=== PATIENT | female | born 1975 | race Caucasian/White ===

== ENCOUNTER → 2019-08-21 12:18 | Outpatient (CLI) | payer OTHER, SELFPAY ==
[2019-08-22 12:56] LABS: Strep Grp B PCR NEG for Grp B Strep
== END ==
PROVIDERS: PCP Family Medicine; Visit Provider Specialist
DX: Z34.83 Encounter for supervision of other normal pregnancy, third trimester (principal)
CPT/HCPCS: 87653

== ENCOUNTER 2019-09-25 10:09 | Outpatient (CLI) | payer OTHER, SELFPAY ==
--- NOTE | 2019-09-25 10:42 | PM.OBTRLD ---
Visit Information Visit Information Date of evaluation: 09/25/19 Primary OB Provider: Nury Duran Reason for Evaluation: Yes non-stress test non-stress test reason: other (Postdates) [facility] Medical History (Updated 09/25/19 @ 10:43 by Nury Duran MD) Abnormal Pap smear of cervix (Inactive ~2001) Allergies (Chronic ~1991) Chicken pox (Resolved ~1988) GERD (gastroesophageal reflux disease) (Chronic ~1987) Human papilloma virus (Inactive ~2001) Hypothyroidism (Chronic ~2009) Vitiligo (Chronic ~2009) Surgical History (Updated 05/01/19 @ 21:05 by Merari Veras) Anesthesia (Resolved) H/O LEEP (Resolved ~2001) Family History (Updated 05/01/19 @ 21:07 by Merari Veras) Father Prostate cancer Stroke Sister Mental health problem Social History Smoking Status: Never smoker Evaluation Evaluation Baseline heart rate: 130 Variability: Moderate (11-25) monitor accelerations: Present monitor decelerations: Absent Category of Tracing: I Diagnosis, Plan/Disposition Final Diagnosis (1) Post-dates : Current Visit: Yes Status: Acute Plan/Disposition Plan: Reactive nonstress test. Follow-up in 4 days. OB Disposition: home
== END 2019-09-25 11:02 | disposition home or self-care (01) ==
LOC: OB 14:41
PROVIDERS: PCP Family Medicine; Visit Provider Specialist
DX: O48.0 Post-term pregnancy (principal); O09.523 Supervision of elderly multigravida, third trimester; Z3A.40 40 weeks gestation of pregnancy
CPT/HCPCS: 59025; G0378; G0379

== ENCOUNTER 2019-09-29 10:05 | Outpatient (CLI) | payer OTHER, SELFPAY ==
--- NOTE | 2019-09-29 10:39 | PM.OBTRLD ---
Visit Information Visit Information Date of evaluation: 09/29/19 Primary OB Provider: Nury Duran Reason for Evaluation: Yes non-stress test non-stress test reason: other (41 weeks) [facility] Medical History (Updated 09/25/19 @ 10:43 by Nury Duran MD) Abnormal Pap smear of cervix (Inactive ~2001) Allergies (Chronic ~1991) Chicken pox (Resolved ~1988) GERD (gastroesophageal reflux disease) (Chronic ~1987) Human papilloma virus (Inactive ~2001) Hypothyroidism (Chronic ~2009) Vitiligo (Chronic ~2009) Surgical History (Updated 05/01/19 @ 21:05 by Merari Veras) Anesthesia (Resolved) H/O LEEP (Resolved ~2001) Family History (Updated 05/01/19 @ 21:07 by Merari Veras) Father Prostate cancer Stroke Sister Mental health problem Social History Smoking Status: Never smoker Evaluation Evaluation Baseline heart rate: 130 Variability: Moderate (11-25) monitor accelerations: Present monitor decelerations: Absent Contraction Frequency (minutes): 10 Uterine Contraction Intensity: Mild Category of Tracing: I Cervical dilation (cm): 3 Cervical effacement (%): 80 station: -3 Diagnosis, Plan/Disposition Final Diagnosis (1) Post-dates : Current Visit: No Status: Acute Plan/Disposition Plan: Reactive nonstress test. Follow-up in 3 days OB Disposition: home
== END 2019-09-29 10:45 | disposition home or self-care (01) ==
LOC: LABOR 10:24 → OB 10-02 15:15
PROVIDERS: PCP Family Medicine; Visit Provider Specialist
DX: O48.0 Post-term pregnancy (principal); O09.523 Supervision of elderly multigravida, third trimester; Z3A.40 40 weeks gestation of pregnancy
CPT/HCPCS: 59025; G0378; G0379

== ENCOUNTER 2019-10-02 03:27 | Inpatient (IN) | payer OTHER, SELFPAY ==
[2019-10-02 04:36] VITALS: BP 153/85
--- NOTE | 2019-10-02 04:48 | P.HPOB_ITS ---
OB HPI Date/Time Date of admission: 10/02/19 Date Patient Seen: 10/02/19 Time Patient Seen: 04:48 History of Present Condition Chief complaint: evaluation of labor : 4 Para: 1 Estimated Date of Delivery: 09/23/19 Estimated Gestational Age (weeks): 41 Narrative: Zoë Rose is a 43 year old female admitted in active labor History of Present care: good care, initiated at week # (7), number of visits (15) and pounds weight gain (28) Dating criteria: LMP confirmed by 1st trimester US Ultrasounds: normal mid trimester US Obstetrical complications: none Medical complications: none Preadmission Labs Blood type: A (+) positive -: Antibody screen: negative, GBS status: negative, HBsAG: negative, HIV: negative and RPR/VDLR: negative -: Chlamydia screen: not detected and Gonorrhea screen: not detected -: Rubella: immune HCAB: negative PAP: Normal Cell-free DNA: Normal 1 hr GTT: 143 3 hr GTT: 1 hr (189), 2 hr (142) and 3 hr (120) Fasting blood glucose: 84 Prior (ies) History: 01/20/2016 41 weeks 6 lb 9 oz male vaginal delivery Evaluation Evaluation Baseline heart rate: 120 Variability: Moderate (11-25) monitor accelerations: Present monitor decelerations: Early Contraction Frequency (minutes): 2 Uterine Contraction Intensity: Strong/Firm Category of Tracing: I Cervical dilation (cm): 9 Cervical effacement (%): 100 station: -2 [facility] Medical History (Updated 09/25/19 @ 10:43 by Nury Duran MD) Abnormal Pap smear of cervix (Inactive ~2001) Allergies (Chronic ~1991) Chicken pox (Resolved ~1988) GERD (gastroesophageal reflux disease) (Chronic ~1987) Human papilloma virus (Inactive ~2001) Hypothyroidism (Chronic ~2009) Vitiligo (Chronic ~2009) Surgical History (Updated 05/01/19 @ 21:05 by Merari Veras) Anesthesia (Resolved) H/O LEEP (Resolved ~2001) Family History (Updated 05/01/19 @ 21:07 by Merari Veras) Father Prostate cancer Stroke Sister Mental health problem Social History Smoking Status: Never smoker Meds Home Medications and Allergies Home Medications Medication Instructions Recorded Confirmed Type Lactobacil rhamnosus GG 10 billion 1 cap PO DAILY 03/27/19 10/02/19 History cell-inulin 200 mg sprinkle capsule ascorbate calcium (vitamin C) 500 500 mg PO DAILY 03/27/19 10/02/19 History mg tablet levothyroxine 75 mcg capsule 75 mcg PO DAILY 03/27/19 10/02/19 History liothyronine 5 mcg tablet 5 mcg PO DAILY 03/27/19 10/02/19 History prenat.vits,jenna,fmx-jshi-aparw 1 tab PO DAILY 03/27/19 10/02/19 History breast pump #1 each 07/21/19 10/02/19 Rx Allergies Allergy/AdvReac Type Severity Reaction Status Date / Time No Known Drug Allergies Allergy Verified 03/27/19 14:42 Review of Systems Review of Systems Narrative: Patient denies any headaches, scotomata, epigastric pain. Good movement. No fevers. ROS Unobtainable: All systems reviewed & are unremarkable except as noted in HPI and below Exam Vital Signs (past 8 hours): Blood pressure 152/85, pulse of temperature 36.5? 10/02/19 04:36 Blood Pressure 153/85 H Narrative Exam Narrative: HEENT exam within normal limits. Lungs are clear to auscultation and percussion. Heart is regular rate and rhythm no S3-S4 or murmurs. Abdomen is gravid. Extremities without edema and nontender. Objective Labs Result Diagrams: 10/02/19 04:15 Assessment and Plan Assessment and Plan Assessment and Plan narrative: Postdates in active labor. Anticipate vaginal delivery.
[2019-10-02 05:09] LABS: Add Manual Diff / Slide Review NO; Basophils Absolute Auto 0 /uL (0-100); Basophils Percent Auto 0.3 % (0-2); Eosinophils Absolute Auto 100 /uL (0-450); Eosinophils Percent Auto 0.9 % (2-4); Hemoglobin 12.8 g/dL (12.0-16.0); Lymphocytes Absolute Auto 1400 /uL (1100-4500); Lymphocytes Percent Auto 13.7 % (25-40); Mean Corpuscular HGB Conc 35.5 % (30-36); Mean Corpuscular Hemoglobin 33.4 PG (26-34); Mean Corpuscular Volume 94.1 fL (80-100); Monocytes Absolute Auto 600 /uL (0-900); Neutrophils Absolute Auto 8300 /uL (1500-7000); Neutrophils Percent Auto 79.1 % (50-75); Platelet Count 212 X10^3/uL (150-400); Red Blood Cell Count 3.82 X10^6/uL (4.0-5.2); Red Cell Distribution Width 12.5 % (11.6-14.8); White Blood Cell Count 10.4 X10^3/uL (4.5-11.0)
--- NOTE | 2019-10-02 06:00 | PM.OBPRVD ---
 Events: Meconium Stained Fluid Labor & Delivery Delivery date: 10/02/19 Intrapartal events: Precipitous Labor < 3 hours Delivery monitor: external FHT and external uterine Route of delivery: L&D Laceration Description: None Estimated blood loss (mL): 200 Anesthesia type: None Narrative: Patient arrived on Labor and delivery in active labor. She progressed rapidly. heart tones category 1 to category 2. With beginning of pushing she was AROM for thin meconium-stained fluid. She had a spontaneous vaginal delivery over an intact perineum. The had a nuchal cord x1. There was less than the a 30 shoulder dystocia that relieved with suprapubic pressure. The infant was placed on maternal abdomen but due to the meconium and initial appearance of the baby the baby was taken to the warmer. Baby responded quickly to cleaning and was returned to the maternal abdomen. Cord bloods were obtained. The placenta delivered spontaneously, intact, with 3 vessels. There were no cervical, vaginal, or perineal tears. Both infant mother doing well. [place] Baby 1: Infant gender: Female Presentation: vertex position: Right Occiput Anterior Placenta delivery description: Spontaneous cord vessel description: Nuchal Cord score (1 min): 7 score (5 min): 9 Plan for aftercare: Routine care
[2019-10-02] MEDS: DERMOPLAST SPRAY 20% 60 ML 1 SPRAY TOP (08:58)
[2019-10-02] MEDS: LANOLIN OINT 7 GM 1 APPLIC TOP (08:58)
[2019-10-02] MEDS: DOCUSATE 100 MG CAPSULE PO (08:59)
[2019-10-02] MEDS: FERROUS GLUCONATE 324 MG TABLET PO (08:59)
[2019-10-02] MEDS: IBUPROFEN 600 MG TABLET PO ×3 (08:59→22:57)
[2019-10-03] MEDS: IBUPROFEN 600 MG TABLET PO ×2 (04:53→10:56)
--- NOTE | 2019-10-03 08:48 | P.DS_ITS ---
Discharge Providers Provider Date of admission: 10/02/19 03:27 Discharge Date: 10/03/19 Primary care physician: Teresa Harding MD Consults: 10/02/19 04:36 Consult to Anesthesiology Urgent Comment: Consulting Provider: Anesthesiologist Reason for consultation: Epidural Has provider been notified: No Discharge provider: Nury Duran MD Summary Hospital Course Date Patient Seen: 10/03/19 Time Patient Seen: 08:49 Hospital Course: Patient arrived on Labor and delivery in active labor. She had a spontaneous vaginal delivery of a viable female infant. She denies any headaches, scotomata, epigastric pain. She is breast-feeding without difficulty. She is urinating and ambulating well. Peripartum Data Infant Delivery Method: Natural Vaginal Laceration description: None Procedures: Spontaneous vaginal delivery complications: none [place] 1: Gender: Female Disposition of : home Discharge Diagnosis (1) Vaginal delivery: Status: Acute Status at Discharge Cognitive/behavioral status at discharge: oriented Functional status at discharge: independent ambulation Overall status at discharge: patient is progressing back to baseline Time Spent with Patient Time attestation: Total time spent providing and/or coordinating discharge services: Objective Labs Result Diagrams: 10/02/19 04:15 Exam Vital Signs (past 8 hours): Blood pressure 122/79, pulse of 88, temperature 99.1? Narrative Exam Narrative: Abdomen is soft, nontender. Uterus is firm, U -1, nontender. Mild lochia. Extremities without edema and nontender. Patient's blood type is A positive, she is rubella immune, she received the Tdap in the 3rd trimester. Discharge Plan Discharge Plan Patient Disposition: Home Discharge orders & Medications Prescriptions: Continued (DME) breast pump [Pump In Style Advanced] Device See Rx Instructions .ROUTE .MEDSUPPLY Qty: 1 RF: 0 prenat.vits,jenna,hxl-znth-okyvl tablet 1 tab PO DAILY RF: 0 levothyroxine 75 mcg capsule 75 mcg PO DAILY RF: 0 liothyronine 5 mcg tablet 5 mcg PO DAILY RF: 0 [employer] 10 billion cell -200 mg capsule, sprinkle 1 cap PO DAILY RF: 0 ascorbate calcium (vitamin C) 500 mg tablet 500 mg PO DAILY RF: 0 Follow up/Referrals: Teresa Harding MD [Primary Care Provider] - Nury Duran MD [Physician] - 11/09/19 (I will see patient in [place] on the 09 of November call for time) Diet/Activity/Treatments Diet: Regular Activity: Nothing in vagina for 4 weeks Discharge Data Primary Care Provider: Teresa Harding
[2019-10-03] MEDS: DOCUSATE 100 MG CAPSULE PO (09:13)
[2019-10-03] MEDS: FERROUS GLUCONATE 324 MG TABLET PO (09:14)
== END 2019-10-03 12:50 | disposition home or self-care (01) | DRG 807 ==
PROVIDERS: Admitting Provider Specialist; PCP Family Medicine; Visit Provider Specialist
DX: O62.3 Precipitate labor (principal); Z37.0 Single live birth; Z3A.41 41 weeks gestation of pregnancy; O77.0 Labor and delivery complicated by meconium in amniotic fluid; O69.81X0 Labor and delivery complicated by cord around neck, without compression, not applicable or unspecified
CPT/HCPCS: 59050; 59400; 85025; 86850; 86900; 86901; G0379

== ENCOUNTER → 2023-06-22 14:57 | Outpatient (CLI) | payer OTHER, SELFPAY ==
[2023-06-22 15:12] LABS: Add Manual Diff / Slide Review NO; Basophils Absolute Auto 0 /uL (0-100); Basophils Percent Auto 0.6 % (0-2); Eosinophils Absolute Auto 100 /uL (0-450); Hematocrit 37.1 % (36-46); Hemoglobin 12.8 g/dL (12.0-16.0); Lymphocytes Absolute Auto 1300 /uL (1100-4500); Lymphocytes Percent Auto 18.3 % (25-40); Mean Corpuscular HGB Conc 34.4 % (30-36); Mean Corpuscular Hemoglobin 30.8 PG (26-34); Mean Corpuscular Volume 89.5 fL (80-100); Monocytes Absolute Auto 400 /uL (0-900); Monocytes Percent Auto 5.6 % (3-14); Neutrophils Absolute Auto 5000 /uL (1500-7000); Neutrophils Percent Auto 73.5 % (50-75); Platelet Count 266 X10^3/uL (150-400); Red Blood Cell Count 4.15 X10^6/uL (4.0-5.2); Red Cell Distribution Width 12.6 % (11.6-14.8); White Blood Cell Count 6.8 X10^3/uL (4.5-11.0)
[2023-06-22 15:33] LABS: Alanine Aminotransferase 39 IU/L (<35); Albumin 4.6 g/dL (3.5-5.0); Albumin Globulin Ratio 1.6 (1.0-2.8); Alkaline Phosphatase 50 U/L (38-126); Aspartate Aminotransferase 35 IU/L (14-36); BUN Creatinine Ratio 32.3 (6-22); Blood Urea Nitrogen 20 mg/dL (7-17); Calcium 9.4 mg/dL (8.4-10.2); Carbon Dioxide 28 mmol/L (22-32); Chloride 102 mmol/L (98-107); Estimated Glomerular Filt Rate > 60 mL/min (>60); Globulin 2.9 g/dL (1.7-4.1); Glucose 108 mg/dL (70-100); HEMOLYSIS < 15 (0-50); Potassium 3.6 mmol/L (3.4-5.1); Sodium 138 mmol/L (137-145); Total Protein 7.5 g/dL (6.3-8.2)
[2023-06-22 15:51] LABS: HCG Quantitative /Beta subunit < 2.4 mIU/mL
[2023-06-22 16:05] LABS: Cancer Antigen 125 17.5 U/mL (0-35)
== END ==
PROVIDERS: PCP Family Medicine; Referring Provider Obstetrics & Gynecology; Visit Provider Obstetrics & Gynecology
DX: R63.4 Abnormal weight loss (principal); O03.4 Incomplete spontaneous abortion without complication
CPT/HCPCS: 36415; 80053; 84702; 85025; 86304